=== PATIENT | female | born 1975 | race African-American/Black ===

== ENCOUNTER 2022-02-05 12:10 | Inpatient (IN) | payer BC ==
[2022-02-05] MEDS ORDERED: SODIUM CHLORIDE 0.9% 500 ML 500 ML IV STA (13:14)
--- NOTE | 2022-02-05 13:21 | ED ---
General Adult HPI - General Chief complaint: Recheck/Abnormal Lab/Rx Stated complaint: low hemoglobin Time Seen by Provider: 02/05/22 13:00 Source: patient, RN notes reviewed, old records reviewed Mode of arrival: ambulatory Limitations: no limitations - History of Present Illness Initial comments: This is a 46-year-old female with no significant past medical history. Patient states she went to see her doctor because she was having some leg cramping and he did some blood work and told her hemoglobin was 3.1. Patient states she always has heavy periods is been no different lately. Patient denies any black or bloody stools. Patient denies any history of similar though she states her sister's anemic. Patient denies being short of breath or having chest pain or palpitations. Patient denies any abdominal pain. Patient any nausea vomiting diarrhea. Patient denies being lightheaded or dizzy. - Related Data Home Medications Medication Instructions Recorded Confirmed Aspirin EC [Ecotrin Low Dose] 81 mg PO DAILY 02/05/22 02/05/22 Monica 500 mg PO DAILY 02/05/22 02/05/22 Ibuprofen [Motrin] 800 mg PO Q8H PRN 02/05/22 02/05/22 Multivitamins, Thera [Multivitamin 1 tab PO DAILY 02/05/22 02/05/22 (formulary)] Rosuvastatin Calcium 5 mg PO HS 02/05/22 02/05/22 Allergies Allergy/AdvReac Type Severity Reaction Status Date / Time peanut Allergy Unknown Verified 02/05/22 14:03 tomato Allergy Unknown Verified 02/05/22 14:03 Review of Systems ROS Statement: Those systems with pertinent positive or pertinent negative responses have been documented in the HPI. ROS Other: All systems not noted in ROS Statement are negative. Past Medical History Past Medical History: Hypertension Additional Past Medical History / Comment(s): Anemia History of Any Multi-Drug Resistant Organisms: None Reported Past Surgical History: No Surgical Hx Reported Past Psychological History: No Psychological Hx Reported Smoking Status: Current every day smoker Past Alcohol Use History: None Reported Past Drug Use History: Marijuana General Exam - General Exam Comments Initial Comments: GENERAL: Patient is well-developed and well-nourished. Patient is nontoxic and well- hydrated and is in no acute distress. ENT: Neck is soft and supple. No significant lymphadenopathy is noted. Oropharynx is clear. Moist mucous membranes. Neck has full range of motion without eliciting any pain EYES: The sclera were anicteric and conjunctiva is pale. Extraocular movements were intact and pupils were equal round and reactive to light. Eyelids were unremarkable. PULMONARY: Unlabored respirations. Good breath sounds bilaterally. No audible rales rhonchi or wheezing was noted. CARDIOVASCULAR: There is a regular rate and rhythm without any murmurs gallops or rubs. ABDOMEN: Soft and nontender with normal bowel sounds. No palpable organomegaly was noted. There is no palpable pulsatile mass. SKIN: Patient's skin is pale. NEUROLOGIC: Patient is alert and oriented x3. Cranial nerves II through XII are grossly intact. Motor and sensory are also intact. Normal speech, volume and content. Symmetrical smile. MUSCULOSKELETAL: Normal extremities with adequate strength and full range of motion. No lower extremity swelling or edema. No calf tenderness. LYMPHATICS: No significant lymphadenopathy is noted PSYCHIATRIC: Normal psychiatric evaluation. Limitations: no limitations Course Vital Signs 02/05/22 02/05/22 02/05/22 12:43 13:00 14:28 Temperature 98.1 F Pulse Rate 86 75 Respiratory 20 18 18 Rate Blood Pressure 157/74 134/55 O2 Sat by Pulse 100 98 Oximetry 02/05/22 15:48 Temperature 98.5 F Pulse Rate 69 Respiratory 16 Rate Blood Pressure 136/54 O2 Sat by Pulse 100 Oximetry Medical Decision Making - Medical Decision Making Patient's hemoglobin was 3.4 I gave the patient 3 units of packed red blood cells. I spoke with Dr. Toney he agreed to admit the patient admitted the patient wrote admitting orders. I consulted hematology. EKG shows sinus rhythm at 71 bpm TN interval 163 QRSs 101 Q-T intervals 370 QTC is 41 per patient's EKG shows no ST segment elevation or depression. - Lab Data Result diagrams: 02/05/22 13:58 02/05/22 13:58 Lab Results 02/05/22 02/05/22 02/05/22 Range/Units 13:55 13:58 13:58 WBC 4.4 (3.8-10.6) k/uL RBC 2.42 L (3.80-5.40) m/uL Hgb 3.4 L* (11.4-16.0) gm/dL Hct 14.3 L* (34.0-46.0) % MCV 59.2 L (80.0-100.0) fL MCH 14.1 L (25.0-35.0) pg MCHC 23.8 L (31.0-37.0) g/dL RDW 20.3 H (11.5-15.5) % Plt Count 419 (150-450) k/uL MPV 7.5 Neutrophils % 63 % Lymphocytes % 31 % Monocytes % 4 % Eosinophils % 1 % Basophils % 0 % Neutrophils # 2.8 (1.3-7.7) k/uL Lymphocytes # 1.3 (1.0-4.8) k/uL Monocytes # 0.2 (0-1.0) k/uL Eosinophils # 0.0 (0-0.7) k/uL Basophils # 0.0 (0-0.2) k/uL Hypochromasia Marked Anisocytosis Moderate Microcytosis Marked PT 10.5 (9.0-12.0) sec INR 1.0 (<1.2) APTT 20.3 L (22.0-30.0) sec Sodium (137-145) mmol/L Potassium (3.5-5.1) mmol/L Chloride (98-107) mmol/L Carbon Dioxide (22-30) mmol/L Anion Gap mmol/L BUN (7-17) mg/dL Creatinine (0.52-1.04) mg/dL Est GFR (CKD-EPI)AfAm (>60 ml/min/1.73 sqM) Est GFR (CKD-EPI)NonAf (>60 ml/min/1.73 sqM) Glucose (74-99) mg/dL Calcium (8.4-10.2) mg/dL Magnesium (1.6-2.3) mg/dL Total Bilirubin (0.2-1.3) mg/dL AST (14-36) U/L ALT (4-34) U/L Alkaline Phosphatase (38-126) U/L Troponin I (0.000-0.034) ng/mL Total Protein (6.3-8.2) g/dL Albumin (3.5-5.0) g/dL Blood Type O Positive Blood Type Recheck O Pos Bld Type Recheck Status No Antibody Screen NEGATIVE Crossmatch See Detail Spec Expiration Date 02/08/2022235702/05/22 02/05/22 Range/Units 13:58 13:58 WBC (3.8-10.6) k/uL RBC (3.80-5.40) m/uL Hgb (11.4-16.0) gm/dL Hct (34.0-46.0) % MCV (80.0-100.0) fL MCH (25.0-35.0) pg MCHC (31.0-37.0) g/dL RDW (11.5-15.5) % Plt Count (150-450) k/uL MPV Neutrophils % % Lymphocytes % % Monocytes % % Eosinophils % % Basophils % % Neutrophils # (1.3-7.7) k/uL Lymphocytes # (1.0-4.8) k/uL Monocytes # (0-1.0) k/uL Eosinophils # (0-0.7) k/uL Basophils # (0-0.2) k/uL Hypochromasia Anisocytosis Microcytosis PT (9.0-12.0) sec INR (<1.2) APTT (22.0-30.0) sec Sodium 139 (137-145) mmol/L Potassium 3.9 (3.5-5.1) mmol/L Chloride 108 H (98-107) mmol/L Carbon Dioxide 22 (22-30) mmol/L Anion Gap 9 mmol/L BUN 4 L (7-17) mg/dL Creatinine 0.52 (0.52-1.04) mg/dL Est GFR (CKD-EPI)AfAm >90 (>60 ml/min/1.73 sqM) Est GFR (CKD-EPI)NonAf >90 (>60 ml/min/1.73 sqM) Glucose 78 (74-99) mg/dL Calcium 8.9 (8.4-10.2) mg/dL Magnesium 2.0 (1.6-2.3) mg/dL Total Bilirubin 0.2 (0.2-1.3) mg/dL AST 18 (14-36) U/L ALT 10 (4-34) U/L Alkaline Phosphatase 71 (38-126) U/L Troponin I <0.012 (0.000-0.034) ng/mL Total Protein 7.9 (6.3-8.2) g/dL Albumin 3.9 (3.5-5.0) g/dL Blood Type Blood Type Recheck Bld Type Recheck Status Antibody Screen Crossmatch Spec Expiration Date Disposition Clinical Impression: Anemia Disposition: ADMITTED IP TO THIS HOSP Time of Disposition: 15:24
[2022-02-05 14:20] LABS: Anisocytosis Moderate; Basophils % (A) 0 %; Eosinophils % (A) 1 %; Hypochromasia Marked; Lymphocytes # (A) 1.3 k/uL (1.0-4.8); Lymphocytes % (A) 31 %; MCH 14.1 pg (25.0-35.0); MCHC 23.8 g/dL (31.0-37.0); MCV 59.2 fL (80.0-100.0); Mean Platelet Volume 7.5; Microcytosis Marked; Monocytes # (A) 0.2 k/uL (0-1.0); Monocytes % (A) 4 %; Neutrophils # (A) 2.8 k/uL (1.3-7.7); Neutrophils % (A) 63 %; Platelet Count 419 k/uL (150-450); RBC 2.42 m/uL (3.80-5.40); RDW 20.3 % (11.5-15.5); WBC 4.4 k/uL (3.8-10.6)
[2022-02-05 14:22] LABS: HGB 3.4 gm/dL (11.4-16.0)
[2022-02-05 14:23] LABS: HCT 14.3 % (34.0-46.0)
[2022-02-05 14:27] LABS: ALT 10 U/L (4-34); AST 18 U/L (14-36); African American GFR (CKD) >90 (>60 ml/min/1.73 sqM); Albumin 3.9 g/dL (3.5-5.0); Alkaline Phosphatase 71 U/L (38-126); Anion Gap 9 mmol/L; Blood Urea Nitrogen 4 mg/dL (7-17); Calcium 8.9 mg/dL (8.4-10.2); Carbon Dioxide 22 mmol/L (22-30); Chloride 108 mmol/L (98-107); Glucose 78 mg/dL (74-99); Non-African American GFR(CKD) >90 (>60 ml/min/1.73 sqM); Potassium 3.9 mmol/L (3.5-5.1); Sodium 139 mmol/L (137-145); Total Bilirubin 0.2 mg/dL (0.2-1.3); Total Protein 7.9 g/dL (6.3-8.2)
[2022-02-05 14:29] LABS: Prothrombin Time 10.5 sec (9.0-12.0)
[2022-02-05 14:32] LABS: Partial Thromboplastin Time 20.3 sec (22.0-30.0)
--- NOTE | 2022-02-05 22:11 | P.HPIM ---
History of Present Illness H&P Date: 02/05/22 Chief Complaint: Low hemoglobin Patient 46-year-old female with a known history of hyperlipidemia, currently everyday smoker and marijuana use and history of anemia presents to ER with complaints of leg cramping. Patient went to see her primary care physician and it blood work-up showed hemoglobin found to be low at 3.1. Patient was referred to ER. Patient states that she has been having heavy menstrual. Sometimes extending up to 7 to 8 days. Otherwise denies any hematemesis or melena. No complaints of upper abdominal discomfort. Patient does take Motrin occasionally for cramping pain. Patient does have mild swelling of the legs. No chest pain or palpitations. Denies shortness of breath. No nausea vomiting or diarrhea. No dizziness or lightheadedness. Review of Systems Constitutional: Patient denies any fever or chills . Patient does have generalized weakness and fatigue. No weight loss. Abdomen: Patient denied nausea vomiting and diarrhea and abdominal pain. Cardiovascular: Patient denies any chest pain or short of breath no palpitations. Respiratory: patient denied any cough is from production. No shortness of breath Neurologic: Patient denied any numbness or tingling headache. Musculoskeletal: Patient denies any complaints of joint swelling or deformity. Does complain of muscle cramps Skin: Negative Psychiatric: Negative Endocrine: No heat or cold intolerance. No recent weight gain. Genitourinary: No dysuria or hematuria. All other 14 point ROS negative except the above Past Medical History Past Medical History: Hypertension Additional Past Medical History / Comment(s): Anemia History of Any Multi-Drug Resistant Organisms: None Reported Past Surgical History: No Surgical Hx Reported Past Psychological History: No Psychological Hx Reported Smoking Status: Current every day smoker Past Alcohol Use History: None Reported Past Drug Use History: Marijuana - Past Family History Sister(s) Additional Family Medical History / Comment(s): anemia and HgB disorder, pt not sure of the name Mother Family Medical History: Myocardial Infarction ([place]) Father Additional Family Medical History / Comment(s): brain aneurism Medications and Allergies Home Medications Medication Instructions Recorded Confirmed Type Aspirin EC [Ecotrin Low Dose] 81 mg PO DAILY 02/05/22 02/05/22 History Monica 500 mg PO DAILY 02/05/22 02/05/22 History Ibuprofen [Motrin] 800 mg PO Q8H PRN 02/05/22 02/05/22 History Multivitamins, Thera [Multivitamin 1 tab PO DAILY 02/05/22 02/05/22 History (formulary)] Rosuvastatin Calcium 5 mg PO HS 02/05/22 02/05/22 History Allergies Allergy/AdvReac Type Severity Reaction Status Date / Time peanut Allergy Unknown Verified 02/05/22 14:03 tomato Allergy Unknown Verified 02/05/22 14:03 Physical Exam Vitals: Vital Signs Temp Pulse Resp BP Pulse Ox 02/05/22 21:54 85 16 135/85 98 02/05/22 21:36 98.5 F 66 20 122/65 98 02/05/22 21:01 98.0 F 75 17 125/60 98 02/05/22 20:33 98.4 F 69 16 128/48 100 02/05/22 19:25 98.3 F 70 16 138/72 97 02/05/22 19:05 98.3 F 76 18 140/83 02/05/22 18:55 98.4 F 77 18 143/62 100 02/05/22 18:52 98.4 F 70 18 148/66 100 02/05/22 18:25 76 18 138/62 98 02/05/22 17:10 78 18 131/50 100 02/05/22 16:18 98.4 F 77 18 152/57 100 02/05/22 16:12 82 18 98 02/05/22 15:58 98.1 F 70 18 139/71 100 02/05/22 15:48 98.5 F 69 16 136/54 100 02/05/22 14:28 75 18 134/55 98 02/05/22 13:00 18 02/05/22 12:43 98.1 F 86 20 157/74 100 Intake and Output 02/05/22 02/05/22 02/05/22 06:59 14:59 22:59 Intake Total 310 Balance 310 Intake: Blood Product 310 Rc As-1 Unit 310 [id number] Rc Pheresis 2 As3 Unit 0 [id number] Rc Pheresis As-3 Unit 0 [id number] Other: Weight 87.997 kg PHYSICAL EXAMINATION: Patient is lying in the bed comfortably, no acute distress, awake alert and oriented.. HEENT: Normocephalic. Neck is supple. Pupils reactive. Nostrils clear. Oral cavity is moist. Neck reveals no JVD, carotid bruits, or thyromegaly. CHEST EXAMINATION: Trachea is central. Symmetrical expansion. Lung pineda clear to auscultation and percussion. CARDIAC: Normal S1, S2 with no gallops. No murmurs ABDOMEN: Soft. Bowel sounds normal. No organomegaly. No abdominal bruits. Extremities: reveal no edema. No clubbing or cyanosis Neurologically awake, alert, oriented x3 with well-coordinated movements. No focal deficits noted Skin: No rash or skin lesions. Psychiatric: Coperative. Nonsuicidal Musculoskeletal: No joint swelling or deformity. Normal range of motion. Results CBC & Chem 7: 02/07/22 09:00 02/07/22 09:00 Labs: Abnormal Lab Results - Last 24 Hours (Table) 02/05/22 02/05/22 02/05/22 Range/Units 13:55 13:58 13:58 RBC 2.42 L (3.80-5.40) m/uL Hgb 3.4 L* (11.4-16.0) gm/dL Hct 14.3 L* (34.0-46.0) % MCV 59.2 L (80.0-100.0) fL MCH 14.1 L (25.0-35.0) pg MCHC 23.8 L (31.0-37.0) g/dL RDW 20.3 H (11.5-15.5) % APTT 20.3 L (22.0-30.0) sec Chloride (98-107) mmol/L BUN (7-17) mg/dL Crossmatch See Detail 02/05/22 Range/Units 13:58 RBC (3.80-5.40) m/uL Hgb (11.4-16.0) gm/dL Hct (34.0-46.0) % MCV (80.0-100.0) fL MCH (25.0-35.0) pg MCHC (31.0-37.0) g/dL RDW (11.5-15.5) % APTT (22.0-30.0) sec Chloride 108 H (98-107) mmol/L BUN 4 L (7-17) mg/dL Crossmatch Thrombosis Risk Factor Assmnt - DVT/VTE Prophylaxis DVT/VTE Prophylaxis: Mechanical Prophylaxis ordered Assessment and Plan Assessment: Acute on chronic blood loss anemia likely due to heavy menstruation. Hemoglobin 3.4 on admission Symptomatic microcytic anemia likely iron deficient Hypertension Hyperlipidemia Gastric sleeve surgery in 2012 Obesity with BMI 35.5 Currently on day smoker and occasional marijuana use DVT prophylax with SCDs Plan: Patient will be continued on Gentle IV hydration monitor H&H. 2 units of PRBC was ordered and hematology was consulted for evaluation. Iron profile B12 and folate levels were ordered. Time with Patient: Greater than 30
[2022-02-05] MEDS: PANTOPRAZOLE 40 MG/10 ML VIAL IVP SCH (23:30)
[2022-02-06 01:46] LABS: Anisocytosis Marked; Basophils % (A) 0 %; Eosinophils # (A) 0.1 k/uL (0-0.7); Eosinophils % (A) 1 %; HCT 21.6 % (34.0-46.0); Hypochromasia Marked; Lymphocytes % (A) 31 %; MCH 20.1 pg (25.0-35.0); Mean Platelet Volume 9.7; Microcytosis Marked; Monocytes # (A) 0.4 k/uL (0-1.0); Monocytes % (A) 6 %; Neutrophils # (A) 3.7 k/uL (1.3-7.7); Neutrophils % (A) 59 %; Platelet Count 311 k/uL (150-450); Poikilocytosis Marked; RBC 3.01 m/uL (3.80-5.40); RDW 24.4 % (11.5-15.5); WBC 6.3 k/uL (3.8-10.6)
[2022-02-06 01:57] LABS: HGB 6.1 gm/dL (11.4-16.0); MCV 71.8 fL (80.0-100.0)
[2022-02-06] MEDS ORDERED: BENZOCAINE/MENTHOL LOZENG 1 EACH LOZENGE MUCOUS MEM PRN (02:19)
[2022-02-06] MEDS: PANTOPRAZOLE 40 MG/10 ML VIAL IVP SCH (09:02)
[2022-02-06] MEDS: MULTIVITAMINS, THERA 1 EACH TAB PO SCH (09:02)
[2022-02-06 09:26] LABS: Anisocytosis Moderate; Basophils % (A) 1 %; Eosinophils # (A) 0.1 k/uL (0-0.7); Eosinophils % (A) 1 %; HCT 22.2 % (34.0-46.0); Hypochromasia Marked; Lymphocytes # (A) 1.2 k/uL (1.0-4.8); Lymphocytes % (A) 23 %; MCH 21.5 pg (25.0-35.0); MCHC 29.7 g/dL (31.0-37.0); MCV 72.5 fL (80.0-100.0); Mean Platelet Volume 8.3; Microcytosis Marked; Monocytes # (A) 0.3 k/uL (0-1.0); Monocytes % (A) 5 %; Neutrophils # (A) 3.7 k/uL (1.3-7.7); Neutrophils % (A) 70 %; Platelet Count 294 k/uL (150-450); Poikilocytosis Marked; RBC 3.07 m/uL (3.80-5.40); RDW 23.8 % (11.5-15.5); WBC 5.3 k/uL (3.8-10.6)
[2022-02-06 09:42] LABS: HGB 6.6 gm/dL (11.4-16.0)
[2022-02-06] MEDS: ACETAMINOPHEN TAB 325 MG TAB PO PRN ×2 (13:03→20:07)
[2022-02-06] MEDS: SODIUM FERRIC GLUCONAT-SUCROSE 125 MG in SODIUM CHLORIDE 0.9% 100 ML IVPB SCH (13:04)
[2022-02-06 15:00] LABS: % Iron Saturation 48.07 (12.00-45.00); Iron 249 ug/dL (50-170); Total Iron Binding Capacity 518 ug/dL (228-460)
--- NOTE | 2022-02-06 17:17 | P.CONS ---
History of Present Illness - Reason for Consult Consult date: 02/06/22 anemia Requesting physician: Aristides Irby - Chief Complaint leg cramps - History of Present Illness Mrs. Garrett is a pleasant 46-year-old female we have been asked to see in regards to severe anemia. Pt reports Hx of heavy menses for many many years, she states that this is the first time she has required a transfusion, her only symptoms prior to admission were leg cramps. She came in with a hemoglobin of 3.4, she is status post 4 units with a hemoglobin today of 6.6. She states that she feels better, has better color and is able to move much easier. She did note some fatigue prior but, she states she would rest and this would improve. She denies any other bleeding, has a history of gastric sleeve surgery, has never had colonoscopy, there is history of colon cancer in the family, otherwise patient states she is in good health. Review of Systems 14 point review of systems is negative except as stated in HPI Past Medical History Past Medical History: Hypertension Additional Past Medical History / Comment(s): Anemia History of Any Multi-Drug Resistant Organisms: None Reported Past Surgical History: No Surgical Hx Reported Additional Past Surgical History / Comment(s): gastric sleeve sx in 2012 Past Anesthesia/Blood Transfusion Reactions: No Reported Reaction Past Psychological History: No Psychological Hx Reported Smoking Status: Current every day smoker Past Alcohol Use History: None Reported Past Drug Use History: Marijuana - Past Family History Sister(s) Additional Family Medical History / Comment(s): anemia and HgB disorder, pt not sure of the name Mother Family Medical History: Myocardial Infarction ([place]) Father Additional Family Medical History / Comment(s): brain aneurism Medications and Allergies Home Medications Medication Instructions Recorded Confirmed Type Aspirin EC [Ecotrin Low Dose] 81 mg PO DAILY 02/05/22 02/05/22 History Monica 500 mg PO DAILY 02/05/22 02/05/22 History Ibuprofen [Motrin] 800 mg PO Q8H PRN 02/05/22 02/05/22 History Multivitamins, Thera [Multivitamin 1 tab PO DAILY 02/05/22 02/05/22 History (formulary)] Rosuvastatin Calcium 5 mg PO HS 02/05/22 02/05/22 History Allergies Allergy/AdvReac Type Severity Reaction Status Date / Time peanut Allergy Unknown Verified 02/05/22 14:03 tomato Allergy Unknown Verified 02/05/22 14:03 Physical Exam Vitals: Vital Signs Temp Pulse Pulse Resp BP BP Pulse Ox 02/06/22 08:00 98.5 F 74 18 117/66 99 02/06/22 06:51 98.3 F 66 16 133/77 99 02/06/22 04:53 98.5 F 77 16 124/70 98 02/06/22 04:33 98.4 F 69 16 111/63 98 02/06/22 04:24 98.4 F 65 16 101/54 95 02/06/22 04:00 98.4 F 65 16 101/54 97 02/05/22 22:59 98.5 F 67 16 135/87 100 02/05/22 22:30 98.5 F 67 16 135/87 100 02/05/22 21:54 85 16 135/85 98 02/05/22 21:36 98.5 F 66 20 122/65 98 02/05/22 21:21 98.6 F 67 16 152/79 99 02/05/22 21:01 98.0 F 75 17 125/60 98 02/05/22 20:33 98.4 F 69 16 128/48 100 02/05/22 19:25 98.3 F 70 16 138/72 97 02/05/22 19:05 98.3 F 76 18 140/83 02/05/22 18:55 98.4 F 77 18 143/62 100 02/05/22 18:52 98.4 F 70 18 148/66 100 02/05/22 18:25 76 18 138/62 98 02/05/22 17:10 78 18 131/50 100 02/05/22 16:18 98.4 F 77 18 152/57 100 02/05/22 16:12 82 18 98 02/05/22 15:58 98.1 F 70 18 139/71 100 02/05/22 15:48 98.5 F 69 16 136/54 100 02/05/22 14:28 75 18 134/55 98 02/05/22 13:00 18 02/05/22 12:43 98.1 F 86 20 157/74 100 Intake and Output 02/05/22 02/06/22 02/06/22 22:59 06:59 14:59 Intake Total 590 280 Balance 590 280 Intake: Oral 0 Blood Product 590 280 Rc As-1 Unit 310 [id number] Rc Pheresis 2 As3 Unit 280 [id number] Rc Pheresis 2 As3 Unit 0 [id number] Rc Pheresis As-3 Unit 280 [id number] Other: Voiding Method Toilet Toilet # Voids 1 Weight 87.997 kg - Constitutional General appearance: average body habitus, cooperative, no acute distress - EENT Eyes: anicteric sclerae, EOMI ENT: hearing grossly normal, normal oropharynx - Neck Neck: no lymphadenopathy - Respiratory Respiratory: bilateral: CTA - Cardiovascular Rhythm: regular Heart sounds: normal: S1, S2 Abnormal Heart Sounds: no systolic murmur, no diastolic murmur, no rub, no S3 Gallop, no S4 Gallop, no click, no other leg Peripheral Edema: bilateral: None - Gastrointestinal General gastrointestinal: no absent bowel sounds, no decreased bowel sounds, no distended, no hepatomegaly, no hyperactive bowel sounds, normal bowel sounds, no organomegaly, no rigid, no scaphoid, soft, no splenomegaly, no tenderness, no umbilical hernia, no ventral hernia - Integumentary Integumentary: normal - Neurologic Neurologic: CNII-XII intact - Musculoskeletal Musculoskeletal: strength equal bilaterally - Psychiatric Psychiatric: A&O x's 3, appropriate affect, intact judgment & insight Results CBC & Chem 7: 02/06/22 08:45 02/05/22 13:58 Labs: Abnormal Lab Results - Last 24 Hours (Table) 02/05/22 02/05/22 02/05/22 Range/Units 13:55 13:58 13:58 RBC 2.42 L (3.80-5.40) m/uL Hgb 3.4 L* (11.4-16.0) gm/dL Hct 14.3 L* (34.0-46.0) % MCV 59.2 L (80.0-100.0) fL MCH 14.1 L (25.0-35.0) pg MCHC 23.8 L (31.0-37.0) g/dL RDW 20.3 H (11.5-15.5) % APTT 20.3 L (22.0-30.0) sec Chloride (98-107) mmol/L BUN (7-17) mg/dL Crossmatch See Detail 02/05/22 02/06/22 02/06/22 Range/Units 13:58 00:18 08:45 RBC 3.01 L 3.07 L (3.80-5.40) m/uL Hgb 6.1 L* D 6.6 L* (11.4-16.0) gm/dL Hct 21.6 L 22.2 L (34.0-46.0) % MCV 71.8 L D 72.5 L (80.0-100.0) fL MCH 20.1 L 21.5 L (25.0-35.0) pg MCHC 28.0 L 29.7 L (31.0-37.0) g/dL RDW 24.4 H 23.8 H (11.5-15.5) % APTT (22.0-30.0) sec Chloride 108 H (98-107) mmol/L BUN 4 L (7-17) mg/dL Crossmatch Assessment and Plan (1) Microcytic hypochromic anemia Current Visit: Yes Status: Acute Priority: High Code(s): D50.9 - IRON DEFICIENCY ANEMIA, UNSPECIFIED SNOMED Code(s): 38694695 Plan: Severe microcytic, hypochromic anemia, likely secondary to years of heavy menses. Patient denies taking any supplemental iron. She denies having a transfusion before. Pretransfusion ferritin is 1.9. This will be used in calculating patient's total iron deficit. Will start parenteral iron while inpatient and give daily until discharge. Patient will be followed up in the outpatient setting to monitor hemoglobin as well as iron studies until adequately restored. Patient will be worked up further if iron does not adequately restore patient's hemoglobin to a normal level. Patient has never seen a [facility] [employer] [facility] regarding menorrhagia, this is a highly recommended referral. Patient has also never had routine colonoscopy-age of routine screening colonoscopy has been decreased to 45, patient is 46 so she falls into the screening category. Patient also reports a family history of colon cancer. Hold PRBC transfusion for hemoglobin of 6.6. Patient is stable and has no symptoms at this time. CBC in the a.m. Patient agreed with the above plan. attests: I have seen and examined patient, performed H&P, developed impression and plan of care. Discussed with dictator. Agree with documentation, dictated as a scribe Time with Patient: Greater than 30
[2022-02-06] MEDS: ATORVASTATIN 10 MG TAB PO SCH (20:12)
[2022-02-07] MEDS: ACETAMINOPHEN TAB 325 MG TAB PO PRN ×3 (08:52→22:46)
[2022-02-07] MEDS: MULTIVITAMINS, THERA 1 EACH TAB PO SCH (08:53)
[2022-02-07] MEDS: SODIUM FERRIC GLUCONAT-SUCROSE 125 MG in SODIUM CHLORIDE 0.9% 100 ML IVPB SCH (08:53)
[2022-02-07] MEDS: PANTOPRAZOLE 40 MG/10 ML VIAL IVP SCH (08:53)
[2022-02-07 09:35] LABS: Anisocytosis Marked; Basophils % (A) 0 %; Eosinophils # (A) 0.1 k/uL (0-0.7); Eosinophils % (A) 1 %; HGB 7.2 gm/dL (11.4-16.0); Hypochromasia Marked; Lymphocytes # (A) 1.4 k/uL (1.0-4.8); Lymphocytes % (A) 20 %; MCH 21.2 pg (25.0-35.0); MCHC 28.9 g/dL (31.0-37.0); MCV 73.4 fL (80.0-100.0); Mean Platelet Volume 9.6; Microcytosis Marked; Monocytes # (A) 0.3 k/uL (0-1.0); Monocytes % (A) 4 %; Neutrophils % (A) 74 %; Platelet Count 291 k/uL (150-450); Poikilocytosis Marked; RBC 3.41 m/uL (3.80-5.40); WBC 6.7 k/uL (3.8-10.6)
[2022-02-07 09:48] LABS: African American GFR (CKD) >90 (>60 ml/min/1.73 sqM); Anion Gap 7 mmol/L; Blood Urea Nitrogen 7 mg/dL (7-17); Calcium 8.4 mg/dL (8.4-10.2); Carbon Dioxide 24 mmol/L (22-30); Chloride 109 mmol/L (98-107); Glucose 82 mg/dL (74-99); Non-African American GFR(CKD) >90 (>60 ml/min/1.73 sqM); Potassium 4.1 mmol/L (3.5-5.1); Sodium 140 mmol/L (137-145)
[2022-02-07 09:51] LABS: RDW 25.2 % (11.5-15.5)
[2022-02-07] MEDS: ATORVASTATIN 10 MG TAB PO SCH (20:10)
[2022-02-08 05:02] VITALS: PULSE 66
[2022-02-08] MEDS: MULTIVITAMINS, THERA 1 EACH TAB PO SCH (08:23)
[2022-02-08] MEDS: PANTOPRAZOLE 40 MG/10 ML VIAL IVP SCH (08:23)
[2022-02-08] MEDS: ACETAMINOPHEN TAB 325 MG TAB PO PRN (08:28)
[2022-02-08] MEDS: SODIUM FERRIC GLUCONAT-SUCROSE 125 MG in SODIUM CHLORIDE 0.9% 100 ML IVPB SCH (08:30)
[2022-02-08 09:31] VITALS: BP 121/70; RESP 20; TEMP 98.1
--- NOTE | 2022-02-08 09:36 | P.PN ---
Subjective Progress Note Date: 02/06/22 Patient 46-year-old female with a known history of hyperlipidemia, currently everyday smoker and marijuana use and history of anemia presents to ER with complaints of leg cramping. Patient went to see her primary care physician and it blood work-up showed hemoglobin found to be low at 3.1. Patient was referred to ER. Patient states that she has been having heavy menstrual. Sometimes extending up to 7 to 8 days. Otherwise denies any hematemesis or melena. No complaints of upper abdominal discomfort. Patient does take Motrin occasionally for cramping pain. Patient does have mild swelling of the legs. No chest pain or palpitations. Denies shortness of breath. No nausea vomiting or diarrhea. No dizziness or lightheadedness. 03/18/2022 Patient is currently resting in the bed. Feels better today. No complaints of chest pain or worsening shortness of breath. No nausea vomiting abdominal pain or diarrhea. Hemoglobin improved to 6.6 after transfusion. Patient was also started on IV iron infusion. No complains of fever or chills. No headache or dizziness or lightheadedness. Hospital production. Laboratory data showed WBC 5.3 hemoglobin 6.6 and platelets 294 MCV 72.5 Otherwise patient is low at 1.9. Current medications reviewed. Objective - Vital Signs Vital signs: Vital Signs Temp 98.5 F 02/06/22 08:00 Pulse 68 02/06/22 15:54 Resp 16 02/06/22 15:54 BP 124/68 02/06/22 15:54 Pulse Ox 98 02/06/22 15:54 FiO2 Intake & Output 02/06/22 02/06/22 02/07/22 06:59 18:59 06:59 Intake Total 560 358 Balance 560 358 Weight 87.997 kg Intake: Oral 0 358 Blood Product 560 Rc Pheresis 2 As3 Unit 280 [id number] Rc Pheresis 2 As3 Unit 0 [id number] Rc Pheresis As-3 Unit 280 [id number] Other: Voiding Method Toilet # Voids 1 3 - Exam PHYSICAL EXAMINATION: Patient is lying in the bed comfortably, no acute distress, awake alert and oriented.. HEENT: Normocephalic. Neck is supple. Pupils reactive. Nostrils clear. Oral cavity is moist. Neck reveals no JVD, carotid bruits, or thyromegaly. CHEST EXAMINATION: Trachea is central. Symmetrical expansion. Lung pineda clear to auscultation and percussion. CARDIAC: Normal S1, S2 with no gallops. No murmurs ABDOMEN: Soft. Bowel sounds normal. No organomegaly. No abdominal bruits. Extremities: reveal no edema. No clubbing or cyanosis Neurologically awake, alert, oriented x3 with well-coordinated movements. No focal deficits noted Skin: No rash or skin lesions. Psychiatric: Coperative. Nonsuicidal Musculoskeletal: No joint swelling or deformity. Normal range of motion. - Labs CBC & Chem 7: 02/07/22 09:00 02/07/22 09:00 Labs: Abnormal Lab Results - Last 24 Hours (Table) 02/05/22 02/05/22 02/06/22 Range/Units 13:55 13:58 00:18 RBC 3.01 L (3.80-5.40) m/uL Hgb 6.1 L* D (11.4-16.0) gm/dL Hct 21.6 L (34.0-46.0) % MCV 71.8 L D (80.0-100.0) fL MCH 20.1 L (25.0-35.0) pg MCHC 28.0 L (31.0-37.0) g/dL RDW 24.4 H (11.5-15.5) % Iron (50-170) ug/dL TIBC (228-460) ug/dL % Saturation (12.00-45.00) Transferrin (204.0-354.0) mg/dL Ferritin 1.9 L (10.0-291.0) ng/mL Crossmatch See Detail 02/06/22 02/06/22 Range/Units 08:45 08:45 RBC 3.07 L (3.80-5.40) m/uL Hgb 6.6 L* (11.4-16.0) gm/dL Hct 22.2 L (34.0-46.0) % MCV 72.5 L (80.0-100.0) fL MCH 21.5 L (25.0-35.0) pg MCHC 29.7 L (31.0-37.0) g/dL RDW 23.8 H (11.5-15.5) % Iron 249 H (50-170) ug/dL TIBC 518 H (228-460) ug/dL % Saturation 48.07 H (12.00-45.00) Transferrin 370.0 H (204.0-354.0) mg/dL Ferritin (10.0-291.0) ng/mL Crossmatch Assessment and Plan Assessment: Acute on chronic blood loss anemia likely due to heavy menstruation. Hemoglobin 3.4 on admission Symptomatic microcytic anemia likely iron deficient Hypertension Hyperlipidemia Gastric sleeve surgery in 2012 Obesity with BMI 35.5 Currently on day smoker and occasional marijuana use DVT prophylax with SCDs Plan: Patient will be continued on Gentle IV hydration monitor H&H. 2 units of PRBC was ordered. Pain is diffuse. Continue with IV infusion Hematology is on board. Continue to monitor closely.. Time with Patient: Greater than 30
--- NOTE | 2022-02-08 09:37 | P.PN ---
Subjective Progress Note Date: 02/07/22 Patient 46-year-old female with a known history of hyperlipidemia, currently everyday smoker and marijuana use and history of anemia presents to ER with complaints of leg cramping. Patient went to see her primary care physician and it blood work-up showed hemoglobin found to be low at 3.1. Patient was referred to ER. Patient states that she has been having heavy menstrual. Sometimes extending up to 7 to 8 days. Otherwise denies any hematemesis or melena. No complaints of upper abdominal discomfort. Patient does take Motrin occasionally for cramping pain. Patient does have mild swelling of the legs. No chest pain or palpitations. Denies shortness of breath. No nausea vomiting or diarrhea. No dizziness or lightheadedness. 02/06/2022 Patient is currently resting in the bed. Feels better today. No complaints of chest pain or worsening shortness of breath. No nausea vomiting abdominal pain or diarrhea. Hemoglobin improved to 6.6 after transfusion. Patient was also started on IV iron infusion. No complains of fever or chills. No headache or dizziness or lightheadedness. Hospital production. Laboratory data showed WBC 5.3 hemoglobin 6.6 and platelets 294 MCV 72.5 Otherwise patient is low at 1.9. 02/07/2022 Patient is able to walk in the room. No complaints of chest pain or shortness of breath. No muscle cramps. Overall improving clinically. Hemoglobin level improved to 7.2 today. No nausea vomiting abdominal pain or diarrhea. No cough or sputum production. No fever no chills. Patient will complete IV infusion for 3 days. Anticipate discharge in next 24 hours. Otherwise laboratory data showed WBC 6.7 hemoglobin 7.2 and platelets 291 Sodium 140 potassium 4.1 chloride 109 bicarb is 24 BUN 7 creatinine 0.57. Current medications reviewed. Objective - Vital Signs Vital signs: Vital Signs Temp 98.3 F 02/07/22 19:35 Pulse 76 02/07/22 19:35 Resp 16 02/07/22 19:35 BP 125/74 02/07/22 19:35 Pulse Ox 99 02/07/22 19:35 FiO2 Intake & Output 02/07/22 02/07/22 02/08/22 06:59 18:59 06:59 Intake Total 250 540 Balance 250 540 Intake: Oral 250 540 Other: # Voids 2 1 - Exam PHYSICAL EXAMINATION: Patient is lying in the bed comfortably, no acute distress, awake alert and oriented.. HEENT: Normocephalic. Neck is supple. Pupils reactive. Nostrils clear. Oral cavity is moist. Neck reveals no JVD, carotid bruits, or thyromegaly. CHEST EXAMINATION: Trachea is central. Symmetrical expansion. Lung pineda clear to auscultation and percussion. CARDIAC: Normal S1, S2 with no gallops. No murmurs ABDOMEN: Soft. Bowel sounds normal. No organomegaly. No abdominal bruits. Extremities: reveal no edema. No clubbing or cyanosis Neurologically awake, alert, oriented x3 with well-coordinated movements. No focal deficits noted Skin: No rash or skin lesions. Psychiatric: Coperative. Nonsuicidal Musculoskeletal: No joint swelling or deformity. Normal range of motion. - Labs CBC & Chem 7: 02/07/22 09:00 02/07/22 09:00 Labs: Abnormal Lab Results - Last 24 Hours (Table) 02/07/22 02/07/22 Range/Units 09:00 09:00 RBC 3.41 L (3.80-5.40) m/uL Hgb 7.2 L (11.4-16.0) gm/dL Hct 25.0 L (34.0-46.0) % MCV 73.4 L (80.0-100.0) fL MCH 21.2 L (25.0-35.0) pg MCHC 28.9 L (31.0-37.0) g/dL RDW 25.2 H (11.5-15.5) % Chloride 109 H (98-107) mmol/L Assessment and Plan Assessment: Acute on chronic blood loss anemia likely due to heavy menstruation. Hemoglobin 3.4 on admission Symptomatic microcytic anemia likely iron deficient Hypertension Hyperlipidemia Gastric sleeve surgery in 2013 Obesity with BMI 35.5 Currently on day smoker and occasional marijuana use DVT prophylax with SCDs Plan: Patient will be continued on Gentle IV hydration monitor H&H. 2 units of PRBC was ordered. Pain is diffuse. Continue with IV infusion Hematology is on board. Continue to monitor closely.. Time with Patient: Greater than 30
[2022-02-08 10:36] LABS: African American GFR (CKD) >90 (>60 ml/min/1.73 sqM); Anion Gap 8 mmol/L; Blood Urea Nitrogen 7 mg/dL (7-17); Calcium 8.2 mg/dL (8.4-10.2); Carbon Dioxide 23 mmol/L (22-30); Chloride 109 mmol/L (98-107); Glucose 85 mg/dL (74-99); Non-African American GFR(CKD) >90 (>60 ml/min/1.73 sqM); Potassium 3.6 mmol/L (3.5-5.1); Sodium 140 mmol/L (137-145)
[2022-02-08 10:37] LABS: Anisocytosis Marked; Basophils % (A) 0 %; Eosinophils # (A) 0.1 k/uL (0-0.7); Eosinophils % (A) 1 %; HCT 25.8 % (34.0-46.0); HGB 7.3 gm/dL (11.4-16.0); Hypochromasia Marked; Lymphocytes # (A) 1.6 k/uL (1.0-4.8); Lymphocytes % (A) 24 %; MCH 21.5 pg (25.0-35.0); MCHC 28.5 g/dL (31.0-37.0); MCV 75.4 fL (80.0-100.0); Mean Platelet Volume 7.8; Microcytosis Marked; Monocytes # (A) 0.4 k/uL (0-1.0); Monocytes % (A) 5 %; Neutrophils # (A) 4.7 k/uL (1.3-7.7); Neutrophils % (A) 68 %; Platelet Count 249 k/uL (150-450); Poikilocytosis Marked; RBC 3.41 m/uL (3.80-5.40); WBC 6.9 k/uL (3.8-10.6)
[2022-02-08 16:24] LABS: Mixed Population RBC Present
[2022-02-08 16:25] LABS: Tear Drop Cells Present
== END 2022-02-08 12:48 | disposition home or self-care (01) | DRG 760 ==
LOC: EC 12:10 → 3SCARD 15:24
PROVIDERS: ADMIT Internal Medicine; ATTEND Internal Medicine
PROC: 30233N1 Transfusion of Nonautologous Red Blood Cells into Peripheral Vein, Percutaneous Approach (ICD-10-PCS; principal; 2022-02-05)
DX: N92.0 Excessive and frequent menstruation with regular cycle (principal); D62 Acute posthemorrhagic anemia; I10 Essential (primary) hypertension; Z68.35 Body mass index [BMI] 35.0-35.9, adult; E66.9 Obesity, unspecified; F17.210 Nicotine dependence, cigarettes, uncomplicated; E78.5 Hyperlipidemia, unspecified; D53.9 Nutritional anemia, unspecified; Z79.82 Long term (current) use of aspirin; Z91.010 Allergy to peanuts; Z91.018 Allergy to other foods; Z98.84 Bariatric surgery status
CPT/HCPCS: 36415; 36430; 80048; 80053; 82525; 82607; 82728; 82746; 82747; 83540; 83550; 83735; 84443; 84484; 85025; 85610; 85730; 86850; 86900; 86901; 86920; 93005; 99285

== ENCOUNTER → 2022-03-27 | Outpatient (CLI) | payer BC ==
--- NOTE | 2022-03-28 08:30 | MM ---
Reason for Exam: Screening (asymptomatic). Baseline mammogram. Patient History: Menarche at age 10. First Full-Term at age 18. Patient has history of breast feeding. Maternal aunt had breast cancer at or over age 50. Sister had breast cancer, right, under age 50. Last menstrual period: 02/10/2022 Risk Values: Bijal 5 year model risk: 1.7%. NCI Lifetime model risk: 16.9%. Prior Study Comparison: Patient's first Mammogram. Tissue Density: The breast tissue is heterogeneously dense. This may lower the sensitivity of mammography. Findings: Analyzed By CAD. There is no suspicious group of microcalcifications or new suspicious mass in either breast. Overall Assessment: Negative, BI-RAD 1 Management: Screening Mammogram of both breasts in 1 year. A clinical breast exam by your physician is recommended on an annual basis and results should be correlated with mammographic findings. Electronically signed and approved by: Jairo Barton M.D. Radiologis
== END | disposition home or self-care (01) ==
LOC: RADMAMWWP 08:20
PROVIDERS: ATTEND Internal Medicine
DX: Z12.31 Encounter for screening mammogram for malignant neoplasm of breast (principal); Z80.3 Family history of malignant neoplasm of breast
CPT/HCPCS: 77063; 77067

== ENCOUNTER 2022-04-05 07:58 | Day surgery (SDC) | payer BC ==
[~2022-04-05 07:58] MED LIST: LACTATED RINGERS 1,000 ML IV SCH; LIDOCAINE 1% (10MG/ML) FOR IV START INTRADERMA PRN
[2022-04-05 08:31] VITALS: RESP 16; TEMP 98.4
[2022-04-05] MEDS ORDERED: LIDOCAINE 2% INJ 20 MG/ML (2 ML VIAL) ONE (08:50)
[2022-04-05] MEDS ORDERED: PROPOFOL 10 MG/ML 20 ML VIAL IV ONE (08:50)
--- NOTE | 2022-04-05 08:56 | P.GSHP ---
History of Present Illness H&P Date: 04/05/22 Chief Complaint: GI bleed This a 38-year-old female with history of GI bleed. Patient resents today for EGD and colonoscopy Past Medical History Past Medical History: GERD/Reflux, Hyperlipidemia, Hypertension Additional Past Medical History / Comment(s): Anemia, seen recently for leg cramping blood testing done found low hgb and sent to ER and admitted while in hospital HGB (3.1) received blood trandfusions. family hx colon CA. hx of low energy. + covid 11/12/21. History of Any Multi-Drug Resistant Organisms: None Reported Past Surgical History: No Surgical Hx Reported, Cholecystectomy Additional Past Surgical History / Comment(s): gastric sleeve sx in 2012, left knee arthroscopic procedure Past Anesthesia/Blood Transfusion Reactions: No Reported Reaction Additional Past Anesthesia/Blood Transfusion Reaction / Comment(s): recent blood transfusion - no problems Smoking Status: Current every day smoker - Past Family History Sister(s) Additional Family Medical History / Comment(s): anemia and HgB disorder, pt not sure of the name Mother Family Medical History: Myocardial Infarction ([place]) Father Additional Family Medical History / Comment(s): brain aneurism Medications and Allergies Home Medications Medication Instructions Recorded Confirmed Type Aspirin EC [Ecotrin Low Dose] 81 mg PO DAILY 02/05/22 04/03/22 History Multivitamins, Thera [Multivitamin 1 tab PO DAILY 02/05/22 04/03/22 History (formulary)] Rosuvastatin Calcium 5 mg PO HS 02/05/22 04/03/22 History Ferrous Sulfate [Iron (65 MG 325 mg PO DAILY 90 Days #90 tab 02/08/22 04/03/22 Rx Elemental)] Pantoprazole [Protonix] 40 mg PO DAILY 02/22/22 04/03/22 History Allergies Allergy/AdvReac Type Severity Reaction Status Date / Time Mushroom Allergy Swelling Verified 04/03/22 17:29 peanut Allergy Swelling Verified 04/03/22 17:29 tomato Allergy Swelling Verified 04/03/22 17:29 Surgical - Exam Vital Signs Temp Pulse Resp BP Pulse Ox 98.4 F 77 16 103/71 98 04/05/22 08:29 04/05/22 08:29 04/05/22 08:29 04/05/22 08:04/05/22 08:29 - General well developed, well nourished, no distress - Eyes PERRL - ENT normal pinna - Neck no masses - Respiratory normal expansion - Cardiovascular Rhythm: regular - Abdomen Abdomen: soft, non tender Assessment and Plan Assessment: GI bleed. We'll perform colonoscopy EGD
--- NOTE | 2022-04-05 09:25 | P.OP ---
Date of Procedure: 04/05/22 Preoperative Diagnosis: GERD GI bleed Postoperative Diagnosis: Antral gastritis Hiatal hernia Esophagitis Diverticulosis Hemorrhoids Procedure(s) Performed: EGD Colonoscopy Anesthesia: MAC Surgeon: Alen Vasquez Pathology: other (Antrum, esophagus) Condition: stable Disposition: PACU Description of Procedure: The patient's placed on the endoscopy table in the lateral position. She received IV sedation. The gastroscope placed oropharynx passed in the esophagus and stomach. Scope was then placed through the pylorus. The first and second portion of the duodenum appeared normal. Scope was then brought back the antrum and this was mildly inflamed. A biopsies performed. The scope was then brought back through the stomach. Patient appears gastric sleeve. The scope was then retroflexed the gastric sleeve appeared to have been stretched and was larger then initially created. There was a moderate hiatal hernia. The GE junction was at 38 cm.. The distal esophagus inflamed a biopsies performed. The proximal esophagus appeared normal. Copious withdrawn for patient. Next digital rectal exam was performed. This revealed a few external hemorrhoids. The flexible colonoscope was then placed patient anus passed throughout the entire colon. The ileocecal valve was visualized. The cecum, ascending and transverse colon appeared normal. In the descending; was moderate diverticular changes. Scope was then brought back the rectum and this appeared normal. Scope withdrawn for patient. There is no evidence of any active bleeding. Presumed patient may have had bleeding from diverticular disease, hemorrhoids
[2022-04-05 10:07] VITALS: BP 142/76; PULSE 80
== END 2022-04-05 10:14 | disposition home or self-care (01) ==
LOC: ORWHC2ENDO 07:58
PROVIDERS: ATTEND Surgery
DX: K21.00 Gastro-esophageal reflux disease with esophagitis, without bleeding (principal); K29.50 Unspecified chronic gastritis without bleeding; K44.9 Diaphragmatic hernia without obstruction or gangrene; K57.30 Diverticulosis of large intestine without perforation or abscess without bleeding; K64.9 Unspecified hemorrhoids; I10 Essential (primary) hypertension; E78.5 Hyperlipidemia, unspecified; Z79.899 Other long term (current) drug therapy; Z90.49 Acquired absence of other specified parts of digestive tract; F17.210 Nicotine dependence, cigarettes, uncomplicated; Z82.49 Family history of ischemic heart disease and other diseases of the circulatory system
CPT/HCPCS: 81025; 88305; 45378; 43239; J2704; J2001

== ENCOUNTER → 2022-05-11 | Outpatient (CLI) | payer OTHER ==
--- NOTE | 2022-05-12 07:24 | US ---
EXAMINATION TYPE: US transvaginal DATE OF EXAM: 05/11/2022 COMPARISON: NONE CLINICAL HISTORY: N95.0 POSTMENOPAUSAL BLEEDING. Enlarged TECHNIQUE: Transvaginal (TV). EXAM MEASUREMENTS: Uterus: 10.1 x 5.2 x 5.6 cm Endometrial Stripe: 0.6 cm Right Ovary: 2.5 x 1.9 x 1.8 cm Left Ovary: 3.6 x 2.6 x 2.7 cm 1. Uterus: Anteverted wnl 2. Endometrium: wnl 3. Right Ovary: wnl 4. Left Ovary: Cystic area 2.6 x 2.9 x 2.4 cm. This lesion has a thin septation versus [address] 5. Bilateral Adnexa: wnl 6. Posterior cul-de-sac: wnl IMPRESSION: 1. Endometrium which appears within normal limits for thickness. 2. Left ovarian dominant follicle/cyst measuring up to 2.9 cm.
== END | disposition home or self-care (01) ==
LOC: RADUSWWP 16:17
PROVIDERS: ATTEND Obstetrics & Gynecology
DX: N95.0 Postmenopausal bleeding (principal)
CPT/HCPCS: 76830

== ENCOUNTER 2022-09-20 06:22 | Day surgery (SDC) | payer BC, OTHER ==
[2022-08-27 13:24] VITALS: BMI 40.8
[~2022-09-20 06:22] MED LIST changes: +Pre Op ABX Message 1 EACH MISC MISCELLANE ONE
[2022-09-20] MEDS ORDERED: ONDANSETRON 4 MG/2 ML VIAL ONE (06:46)
--- NOTE | 2022-09-20 06:47 | P.HPOB ---
History of Present Illness H&P Date: 09/20/22 Chief Complaint: menorrhagia 46 year old presents for D&C hysteroscopy and endometrial ablation with NovaSure. Review of Systems All systems: negative Constitutional: Denies chills, Denies fever Eyes: denies blurred vision, denies pain Ears, nose, mouth and throat: Denies headache, Denies sore throat Cardiovascular: Denies chest pain, Denies shortness of breath Respiratory: Denies cough Gastrointestinal: Denies abdominal pain, Denies diarrhea, Denies nausea, Denies vomiting Genitourinary: Denies dysuria, Denies hematuria Musculoskeletal: Denies myalgias Integumentary: Denies pruritus, Denies rash Neurological: Denies numbness, Denies weakness Psychiatric: Denies anxiety, Denies depression Endocrine: Denies fatigue, Denies weight change Past Medical History Past Medical History: Hyperlipidemia, Osteoarthritis (OA) Additional Past Medical History / Comment(s): Anemia with low hgb and blood tx's History of Any Multi-Drug Resistant Organisms: None Reported Past Surgical History: Bariatric Surgery, Section, Cholecystectomy, Orthopedic Surgery Additional Past Surgical History / Comment(s): gastric sleeve sx in 2012, left knee arthroscopic procedure Past Anesthesia/Blood Transfusion Reactions: No Reported Reaction Additional Past Anesthesia/Blood Transfusion Reaction / Comment(s): no issues with blood tx Smoking Status: Former smoker - Past Family History Sister(s) Additional Family Medical History / Comment(s): anemia and HgB disorder, pt not sure of the name Mother Family Medical History: Diabetes Mellitus, Myocardial Infarction ([place]) Father Additional Family Medical History / Comment(s): brain aneurysm Medications and Allergies Home Medications Medication Instructions Recorded Confirmed Type Aspirin EC [Ecotrin Low Dose] 81 mg PO DAILY 02/05/22 09/18/22 History Multivitamins, Thera [Multivitamin 1 tab PO DAILY 02/05/22 09/18/22 History (formulary)] Ferrous Sulfate [Iron (65 MG 325 mg PO DAILY 90 Days #90 tab 02/08/22 09/18/22 Rx Elemental)] Atorvastatin [Lipitor] 5 mg PO HS 04/27/22 09/18/22 History Naproxen Sodium [Anaprox Ds] 550 mg PO BID 08/27/22 09/18/22 History Acetaminophen Oral Susp [Tylenol] 200 mg PO Q6H PRN 09/18/22 09/18/22 History Acetaminophen [Tylenol Arthritis] 650 mg PO Q6H PRN 09/18/22 09/18/22 History Diclofenac Sodium [Voltaren] 75 mg PO DAILY 09/18/22 09/18/22 History Allergies Allergy/AdvReac Type Severity Reaction Status Date / Time Mushroom Allergy Swelling Verified 09/20/22 06:43 peanut Allergy Swelling Verified 09/20/22 06:43 tomato Allergy Swelling Verified 09/20/22 06:43 Exam Osteopathic Statement: *. No significant issues noted on an osteopathic structural exam other than those noted in the History and Physical/Consult. Intake and Output 09/19/22 09/19/22 09/20/22 14:59 22:59 06:59 Other: Weight 101.7 kg Heart: Regular rate and rhythm Lungs: Clear to auscultation bilaterally Abdomen: Soft, nontender Extremities: Negative Homans sign Assessment and Plan (1) Menorrhagia Current Visit: Yes Status: Acute Code(s): N92.0 - EXCESSIVE AND FREQUENT MENSTRUATION WITH REGULAR CYCLE SNOMED Code(s): 419111714 Plan: 1. D&C hysteroscopy and endometrial ablation with NovaSure
[2022-09-20 06:54] VITALS: RESP 16
[2022-09-20] MEDS ORDERED: DEXAMETHASONE SOD PHOSPHATE 4 MG/ML 1 ML VIAL IVP ONE (07:02)
[2022-09-20] MEDS ORDERED: PROPOFOL 10 MG/ML 20 ML VIAL IV ONE (07:30)
[2022-09-20] MEDS ORDERED: SUCCINYLCHOLINE CHLORIDE 200 MG/10 ML VIAL IV ONE (07:30)
[2022-09-20] MEDS ORDERED: KETOROLAC 15 MG/ML 1 ML VIAL ONE (07:30)
[2022-09-20] MEDS ORDERED: fentaNYL (PF) 50 MCG/ML 2 ML AMP ONE (07:30)
[2022-09-20] MEDS ORDERED: MIDAZOLAM 2 MG/2 ML VIAL ONE (07:30)
[2022-09-20] MEDS ORDERED: LIDOCAINE 2% INJ 20 MG/ML (2 ML VIAL) ONE (07:30)
--- NOTE | 2022-09-20 08:10 | P.OP ---
Date of Procedure: 09/20/22 Preoperative Diagnosis: 1. menorrhagia Postoperative Diagnosis: 1. menorrhagia Procedure(s) Performed: D&C, hysteroscopy, endometrial ablation with NovaSure Anesthesia: GURJIT Surgeon: Leeann Harvey Estimated Blood Loss (ml): 1 IV fluids (ml): 400 Urine output (ml): 50 Pathology: other (Endometrial curettings) Condition: stable Disposition: PACU Operative Findings: Uterus sounded to 10 cm and the cervix sounded to 4 cm making the cavity length 6 cm. Width 3.2 cm, time of ablation 47 seconds at [address]. adequate ablation after NovaSure Description of Procedure: Patient is taken the operating room where general anesthesia was obtained without difficulty. She was prepped and draped in normal sterile fashion dorsal lithotomy position, legs placed in the candAdtuitive cane stirrups. Bladder was drained of all urine. Weighted speculum placed in the vagina and the anterior lip the cervix was grasped with serial tooth tenaculum. The uterus sounded to 10 cm and the cervix under 4 cm making the cavity length 6 cm. The cervix was dilated to #8 Hegar dilator. Hysteroscopy was then performed. Both ostia were visualized and there was a smooth contour of the uterus. Sharp curet was then gently used to obtain endometrial curettings. The NovaSure was introduced into the uterus with a cavity length of 6 cm, width 3.2 cm. after cavity assessment was passed, the time of ablation was 47 seconds at [address]. Hysteroscopy was again performed and adequate ablation was noted. All instruments removed from the vagina. Patient tolerated the procedure well, sponge and instrument counts were correct 2 and she was taken to recovery in stable condition.
[2022-09-20 08:11] VITALS: TEMP 96.9
[2022-09-20 09:36] VITALS: BP 134/72; PULSE 65
== END 2022-09-20 10:01 | disposition home or self-care (01) ==
LOC: OR 06:22
PROVIDERS: ATTEND Obstetrics & Gynecology
DX: N92.0 Excessive and frequent menstruation with regular cycle (principal); D64.9 Anemia, unspecified; E78.5 Hyperlipidemia, unspecified; M19.90 Unspecified osteoarthritis, unspecified site; Z98.84 Bariatric surgery status; Z98.891 History of uterine scar from previous surgery; Z90.49 Acquired absence of other specified parts of digestive tract; Z98.890 Other specified postprocedural states; Z87.891 Personal history of nicotine dependence; Z83.3 Family history of diabetes mellitus; Z82.49 Family history of ischemic heart disease and other diseases of the circulatory system; Z79.82 Long term (current) use of aspirin; Z79.899 Other long term (current) drug therapy; Z79.1 Long term (current) use of non-steroidal anti-inflammatories (NSAID); Z91.018 Allergy to other foods
CPT/HCPCS: 81025; 88305; 58563; J2250; J0330; J1100; J2405; J3010; J1885; J2704; J2001

== ENCOUNTER → 2023-07-17 | Outpatient (CLI) | payer BC ==
--- NOTE | 2023-07-17 11:48 | FL ---
EXAMINATION TYPE: FL barium swallow DATE OF EXAM: 07/17/2023 10:53 AM COMPARISON: None. CLINICAL INDICATION:Female, 47 years old with history of K21.00 GASTRO-ESOPHAGEAL REFLUX DIS WITH ESO PHAGIT; PHH, TECHNIQUE: The procedure was explained and patient history elicited. All patient questions were ans wered prior to start of procedure. Multiple spot fluoroscopic images of the esophagus were obtained a fter the oral ingestion of effervescent crystals and liquid barium as the contrast agent. Fluoroscopic time: 3 seconds sec Fluoroscopic images: 0 Radiographs taken: 232 DAP: [id number] FINDINGS: The esophagus demonstrates normal primary and secondary peristalsis. Few tertiary contractions are pr esent. The esophageal mucosa is smooth without evidence of focal stricture, ulceration, or abnormal o utpouching. There was scattered to cerebral reflux identified well upright and prone. IMPRESSION: 1. Esophageal dysmotility, 2. Moderate to large gastrointestinal reflux while upright and prone.
== END | disposition home or self-care (01) ==
LOC: RADUSWWP 10:03
PROVIDERS: ATTEND Surgery Plastic and Reconstructive Surgery
DX: K21.00 Gastro-esophageal reflux disease with esophagitis, without bleeding (principal); K22.4 Dyskinesia of esophagus
CPT/HCPCS: 74220